=== PATIENT | male | born 1965 | race Caucasian/White ===

== ENCOUNTER 2025-07-09 23:06 | Inpatient (IN) | payer OTHER ==
[~2025-07-09] VITALS: Ht 190.5 cm; Wt 111.4 kg
--- NOTE | 2025-07-09 23:15 | ED.PDOC ---
SOB-HPI HPI Comments 60 year old male presents to the ED via EMS with a chief complaint of shortness of breath. PMHx COPD, HTN, a-fib, pacemaker. Per EMS patient was on 2L O2 at home, sat was 88%, was increased to 6L O2. BP was 77/50. Patient states he has been experiencing fever, sweats, shortness of breath for the past few hours. He is not compliant with Lasix medication, last dose was about 1 week ago. Denies dizziness, nausea, vomiting, diarrhea, dysuria, hematuria, sore throat, congestion. No other symptoms or modifying factors present at this time. Time Seen by MD: 23:05 Reviewed notes: Medications, Allergies Information Source: Patient, Emergency Med Personnel Mode of Arrival: EMS Severity: Moderate Timing: Hours Duration: Since onset Context: At Rest PE Risk Factors: None History of: COPD Prehospital treatment: Oxygen Modifying Factors: Nothing Associated Signs and Symptoms: Fever Past Medical History PAST MEDICAL HISTORY: AFIB, COPD, HTN Surgical History: Pacemaker Family History Family History: Reviewed,noncontributory to illness, No family hx of Cancer, No family hx of DM, No family hx of Heart margarita, No family hx of HTN, No family hx ofKidney margarita, No family hx of Liver margarita, No family hx of Lung margarita, No family hx of Stroke Social History Smoker: Non-Smoker Alcohol: Denies ETOH Use Drugs: Denies Drug Use Lives In: Home Constitutional: reports: fever, sweats; denies: chills, diaphoresis, fatigue, malaise, weakness, others EENTM: denies: blurred vision, double vision, ear bleeding, ear discharge, ear drainage, ear pain, ear ringing, eye pain, eye redness, hearing loss, mouth pain, mouth swelling, nasal discharge, nose bleeding, nose congestion, nose pain, photophobia, tearing, throat pain, throat swelling, voice changes, others Respiratory: reports: shortness of breath; denies: cough, hemoptysis, orthopnea, SOB at rest, SOB with excertion, stridor, wheezing, others Cardiovascular: denies: chest pain, dizzy spells, diaphoresis, Dyspnea on exertion, edema, irregular heart beat, left arm pain, lightheadedness, palpitations, PND, syncope, others Gastrointestinal: denies: abdomen distended, abdominal pain, blood streaked bowels, constipated, diarrhea, dysphagia, difficulty swallowing, hematemesis, melena, nausea, poor appetite, poor fluid intake, rectal bleeding, rectal pain, vomiting, others Genitourinary: denies: burning, dysuria, flank pain, frequency, hematuria, incontinence, penile discharge, penile sore, pain, testicle pain, testicle swelling, urgency, others Neurological: denies: dizziness, fainting, headache, left sided numbness, left sided weakness, numbness, paresthesia, pre-existing deficit, right sided numbness, right sided weakness, seizure, speech problems, tingling, tremors, weakness, others Musculoskeletal: denies: back pain, gout, joint pain, joint swelling, muscle pain, muscle stiffness, neck pain, others Integumetry: denies: bruises, change in color, change in hair/nails, dryness, laceration, lesions, lumps, rash, wounds, others Allergic/Immunocompromised: denies: Difficulty Healing, Frequent Infections, Hives, Itching, others Hematologic/Lymphatic: denies: anemia, blood clots, easy bleeding, easy bruising, swollen glands, others Endocrine: denies: excessive hunger, excessive sweating, excessive thirst, excessive urination, flushing, intolerance to cold, intolerance to heat, unexplained weight gain, unexplained weight loss, others Psychiatric: denies: anxiety, bipolar disorder, depression, hopeless, panic disorder, schizophrenia, sleepless, suicidal, others All Other Systems: Reviewed and Negative Physical Exam General Appearance: Normal HEENT: Normal ENT Inspection, Pharynx Normal, TMs Normal Neck: Full Range of Motion, Non-Tender, Normal, Normal Inspection Respiratory: Chest Non-Tender, Lungs Clear, No Accessory Muscle Use, No Respiratory Distress, Normal Breath Sounds Cardiovascular: No Edema, No JVD, No Murmur, No Gallop, Normal Peripheral Pulses, Regular Rate/Rhythm Breast Exam: Deferred Gastrointestinal: No Organomegaly, Non Tender, No Pulsatile Mass, Normal Bowel Sounds, Soft Genitalia: Deferred Pelvic: Deferred Rectal: Deferred Extremities: No calf tenderness, Normal capillary refill, Normal inspection, Normal range of motion, Non-tender, No pedal edema Musculoskeletal : Apperance: Normal Neurologic: Alert, gis software developer II-XII nml as Tested, No Motor Deficits, Normal Affect, Normal Mood, No Sensory Deficits Cerebellar Function: Normal Reflexes: Normal Skin: Dry, Normal Color, Warm Lymphatic: No Adenopathy Was a procedure done? Was a procedure done?: No Differential Dx Differential Diagnosis: Asthma, CHF, COPD, Pneumonia, Pulmonary Embolism, URI, Other X-Ray, Labs, Meds, VS Vital Signs Date Time Temp Pulse Resp B/P (MAP) Pulse Ox O2 Delivery O2 Flow Rate FiO2 07/10/25 01:06 76/50 07/10/25 00:51 76/43 07/10/25 00:31 72/45 07/10/25 00:00 80 07/09/25 23:50 91 20 92 Nasal Cannula* 6 44 07/09/25 23:18 99.8 80 26 77/50 95 99.8 07/09/25 23:08 80 Lab Test 07/10/25 00:32 07/09/25 23:45 07/09/25 23:17 Range/Units Troponin I High Sensitivity Pending 77 *H </=54 ng/L Influenza Type A Antigen Negative Negative Influenza Type B Antigen Negative Negative SARS-CoV-2 Antigen (Rapid) Negative NEGATIVE White Blood Count 15.1 H 4.4-10.8 10^3/uL Red Blood Count 4.52 4.5-5.90 10^6/uL Hemoglobin 13.0 L 13.5-17.5 g/dL Hematocrit 38.8 L 41.0-53.0 % Mean Corpuscular Volume 86.0 80.0-100.0 fL Mean Corpuscular Hemoglobin 28.7 28.0-32.0 pg Mean Corpuscular Hemoglobin Concent 33.4 32.0-36.0 g/dL Red Cell Distribution Width 14.4 H 11.8-14.3 % Platelet Count 209 140-450 10^3/uL Mean Platelet Volume 8.3 6.9-10.8 fL Neutrophils (%) (Auto) 87.1 H 37.0-80.0 % Lymphocytes (%) (Auto) 3.3 L 10.0-50.0 % Monocytes (%) (Auto) 9.5 0.0-12.0 % Eosinophils (%) (Auto) 0.0 0.0-7.0 % Basophils (%) (Auto) 0.1 0.0-2.0 % Neutrophils # (Auto) 13.1 H 1.6-8.6 10 ^3/uL Lymphocytes # (Auto) 0.5 0.4-5.4 10 ^3/uL Monocytes # (Auto) 1.4 H 0-1.3 10 ^3/uL Eosinophils # (Auto) 0 0-0.8 10 ^3/uL Basophils # (Auto) 0 0-0.2 10 ^3/uL Nucleated Red Blood Cells 0.0 % Prothrombin Time 17.2 H 9.3-11.8 sec Prothrombin Time INR 1.71 H 0.9-1.15 Activated Partial Thromboplast Time 37.7 H 24.5-34.5 SEC Sodium Level 130 L 136-145 mmol/L Potassium Level 4.2 3.5-5.1 mmol/L Chloride Level 95 L 98-107 mmol/L Carbon Dioxide Level 23 20-31 mmol/L Anion Gap 12 5-15 Blood Urea Nitrogen 23 9-23 mg/dL Creatinine 1.25 0.700-1.30 mg/dL Glomerular Filtration Rate Calc 66 >90 mL/min BUN/Creatinine Ratio 18.4 10.0-20.0 Serum Glucose 206 H 74-106 mg/dL Lactic Acid Level 5.3 *H 0.4-2.0 mmol/L Calcium Level 8.1 L 8.7-10.4 mg/dL Magnesium Level 1.8 1.6-2.6 mg/dL Total Bilirubin 3.8 H 0.2-1.0 mg/dL Aspartate Amino Transferase (AST) 119 H 13-40 U/L Alanine Aminotransferase (ALT) 84 H 7-40 U/L Alkaline Phosphatase 281 H 46-116 U/L B-Type Natriuretic Peptide 292.60 0-100 pg/mL Total Protein 6.3 5.7-8.2 g/dL Albumin 3.1 L 3.2-4.8 g/dL Current Medications Medications (Trade) Dose Ordered Sig/Dave Route Start Time Stop Time Status Last Admin Sodium Chloride 1,000 ml @ 1,000 mls/hr Q1H ONCE IVB 07/09/25 23:15 07/10/25 00:14 DC 07/09/25 23:21 Piperacillin Sod/ Tazobactam Sod 100 ml @ 100 mls/hr ONCE ONCE IV 07/09/25 23:15 07/10/25 00:14 DC 07/09/25 23:22 Norepinephrine Bitartrate 250 ml @ 3.75 mls/hr Q24H IV 07/10/25 00:15 07/10/25 00:[address] [address] Ph: [phone] DIAGNOSTIC IMAGING Diagnostic Imaging Report : [id number] Signed PATIENT: YASHIRA GUTIERREZ ACCT: [id number] UNIT: [id number] : 1965 LOC: ER ROOM / BED: / AGE / SEX: 60 / M ADM STATUS: REG ER SERVICE 09 ORDERING PHYSICIAN: MICHAEL HERR MD PROCEDURE(s): CXRP - CHEST PORTABLE REASON: SOB ORDER NUMBER(s): [id number], ACCESSION NUMBER(s): [id number] CHEST RADIOGRAPH Indication: SOB Technique: 1 view Comparison: None FINDINGS: Lines and Tubes: Left implanted cardiac device with leads terminating at the right atrium, right ventricle and coronary sinus. Lungs/Pleura: Diffusely increased interstitial markings. No focal consolidation or evident pleural abnormality. Cardiomediastinum: Unremarkable. Other: No acute osseous abnormality. IMPRESSION: 1. Heart failure pattern without acute findings. ATED BY: GLORIA MENDOZA MD DICTATED DATE/TIME: 07/09/252345 SIGNED BY: GLORIA MENDOZA MD SIGNED DATE/TIME: 07/09/252345 CC: Time of 1ST Reevaluation: 23:35 Reevaluation 1ST: Unchanged Patient Education/Counseling: Diagnosis, Treatment Family Education/Counseling: No Family Present SEPSIS Sepsis Screen Physician Orders Blood Culture (07/09/25 23:10) Chest Portable (07/09/25 23:10) Oxygen (07/09/25 23:10) Process Architect (07/09/25 23:10) Troponin-I Hs (07/10/25 00:10) Troponin-I Hs (07/10/25 02:10) Norepinephrine 8 Mg/250ml Kit (Levophed) (07/10/25 00:15) Vital Signs Date Time Temp Pulse Resp B/P (MAP) Pulse Ox O2 Delivery O2 Flow Rate FiO2 07/10/25 01:06 76/50 8/28/25 00:51 76/43 07/10/25 00:31 72/45 07/10/25 00:00 80 07/09/25 23:50 91 20 92 Nasal Cannula* 6 44 07/09/25 23:18 99.8 80 26 77/50 95 99.8 07/09/25 23:08 80 Laboratory Tests Test 07/09/25 23:17 Lactic Acid Level 5.3 mmol/L (0.4-2.0) *H White Blood Count 15.1 10^3/uL (4.4-10.8) H Medications Medications Dose Ordered Sig/Dave Route Start Time Stop Time Status Last Admin Dose Admin Norepinephrine Bitartrate 250 ml @ 3.75 mls/hr Q24H IV 07/10/25 00:15 07/10/25 00:31 Piperacillin Sod/ Tazobactam Sod 100 ml @ 100 mls/hr ONCE ONCE IV 07/09/25 23:15 07/10/25 00:14 DC 07/09/25 23:22 Sodium Chloride 1,000 ml @ 1,000 mls/hr Q1H ONCE IVB 07/09/25 23:15 07/10/25 00:14 DC 07/09/25 23:21 Departure 1 Departure Time of Disposition: 01:30 Impression: Primary Impression: Respiratory failure with hypoxia Additional Impressions: Pneumonitis CHF (congestive heart failure) Disposition: ADMITTED INPATIENT Admit to: [facility] Condition: Guarded Comments Lab and x-ray results reviewed. Lactic acid elevated. Troponin elevated. Chest x-ray shows CHF and pneumonitis. Patient was given aspirin and IV Rocephin and azithromycin and Lasix. Patient will need to be admitted for stabilization and further workup. Critical Care Note Critical Care Time?: Yes (35 min-critical care time only) Critical care comment: Total critical care time: Approximately 36 minutes Due to a high probability of clinically significant, life threatening deterioration, the patient required my highest level of preparedness to intervene emergently and I personally spent this critical care time directly and personally managing the patient. This critical care time included obtaining a history; examining the patient; pulse oximetry; ordering and review of studies; arranging urgent treatment with development of a management plan; evaluation of patient's response to treatment; frequent reassessment; and, discussions with other providers. This critical care time was performed to assess and manage the high probability of imminent, life-threatening deterioration that could result in multi-organ failure. It was exclusive of separately billable procedures and treating other patients. Stability Stability form required: No Heart Score Heart Score: Heart Score Response (Comments) Value History Moderate Suspicious 1 EKG Repolarization Disturb 1 Age 45-64 1 Risk Factors >3 or Hx ASHD 2 Troponin 1-2 x's Normal limit 1 Total 6 I personally scribed for MICHAEL HERR MD ([email or web address]) on 07/09/25 at 23:15. Electronically submitted by Desiree Ayers ([email or web address]). I personally scribed for MICHAEL HERR MD ([email or web address]) on 07/10/25 at 00:02. Electronically submitted by Desiree Ayers ([email or web address]). MICHAEL HERR MD Jul 09, 2025 23:15
[2025-07-09] MEDS: SODIUM CHLORIDE 0.9% 1,000 ML IVB ONE (23:21)
[2025-07-09] MEDS: PIPERACILLIN-TAZOB 3.375GM 100 ML IV ONE (23:22)
--- NOTE | 2025-07-09 23:29 | ECG ---
[facility] Test Date: 2025-07-09 Test Time: 23:08:00 Pat Name: YASHIRA GUTIERREZ Department: Room: [address] [place] [address] Gender: M Reel Film Inspector: YUE : 1965 Requested By: MICHAEL HERR Order Number: [id number] Reading MD: Arley Jimenez Measurements Intervals [place] Rate: 80 P: 0 AL: 71 QRS: 200 QRSD: 179 T: -15 QT: 467 QTc: 539 Interpretive Statements Ventricular-paced rhythm No further analysis attempted due to paced rhythm Electronically Signed On 07-10-2025 13:12:46 PDT by Arley Jimenez Please click the below link to view image of tracing.
--- NOTE | 2025-07-09 23:49 | DVH ---
CHEST RADIOGRAPH Indication: SOB Technique: 1 view Comparison: None FINDINGS: Lines and Tubes: Left implanted cardiac device with leads terminating at the right atrium, right vent ricle and coronary sinus. Lungs/Pleura: Diffusely increased interstitial markings. No focal consolidation or evident pleural a bnormality. Cardiomediastinum: Unremarkable. Other: No acute osseous abnormality. IMPRESSION: 1. Heart failure pattern without acute findings.
[2025-07-09 23:50] VITALS: PULSE 91; RESP 20; O2SAT 92
[2025-07-09 23:53] LABS: Anion Gap 12 (5-15); BUN/Creatinine Ratio 18.4 (10.0-20.0); Blood Urea Nitrogen 23 mg/dL (9-23); Carbon Dioxide 23 mmol/L (20-31); Magnesium 1.8 mg/dL (1.6-2.6); Potassium 4.2 mmol/L (3.5-5.1); Total Protein 6.3 g/dL (5.7-8.2)
[2025-07-09 23:54] LABS: Alanine Aminotransferase 84 U/L (7-40); Albumin 3.1 g/dL (3.2-4.8); Alkaline Phosphatase 281 U/L (46-116); Bilirubin, Total 3.8 mg/dL (0.2-1.0); Calcium 8.1 mg/dL (8.7-10.4); Chloride 95 mmol/L (98-107); Glucose 206 mg/dL (74-106); Sodium 130 mmol/L (136-145)
[2025-07-09 23:55] LABS: Hematocrit 38.8 % (41.0-53.0); Hemoglobin 13.0 g/dL (13.5-17.5); Mean Corpuscular Hemoglobin 28.7 pg (28.0-32.0); Mean Corpuscular Volume 86.0 fL (80.0-100.0); Nucleated Red Blood Cells % 0.0 %
[2025-07-09 23:59] LABS: Lactic Acid w/Reflex 5.3 mmol/L (0.4-2.0)
[2025-07-10] VITALS (47 sets, daily range): BP systolic 79–121; BP diastolic 28–74; PULSE 80–83; RESP 10–37; TEMP 97.1–102.3; O2SAT 82–97
[2025-07-10 00:08] LABS: INR 1.71 (0.9-1.15); Partial Thromboplastin Time 37.7 SEC (24.5-34.5); Prothrombin Time 17.2 sec (9.3-11.8)
[2025-07-10] MEDS: NOREPINEPHRINE 8 MG/250ML KIT 250 ML IV SCH (00:31)
[2025-07-10 00:55] LABS: COVID19 ANTIGEN SOFIA FIA NEGATIVE (NEGATIVE)
[2025-07-10] MEDS: FUROSEMIDE 20 MG/2 ML VIAL IV ONE (02:16)
[2025-07-10] MEDS: AZITHROMYCIN 500MG/ 250ML 250 ML IV ONE (03:30)
[2025-07-10 07:00] LABS: Urine Protein, UAD 1+ (Negative)
[2025-07-10] MEDS ORDERED: MIRT1TAB38 PO (10:08)
[2025-07-10] MEDS ORDERED: WARF-115 PO (10:08)
[2025-07-10] MEDS ORDERED: CARV25TA55 PO (10:08)
[2025-07-10] MEDS ORDERED: ATOR40TA52 PO (10:08)
--- NOTE | 2025-07-10 10:44 | DVHHP2 ---
History of Present Illness Reason for Visit: Shortness of breath History of Present Illness London Linton is a 60-year-old male with past medical history of AFib, COPD, hypertension, pacemaker, bladder cancer status post chemo radiation, ex-tobacco use, alcohol use, who presents to the ED with shortness of breath. Patient reports that he takes 2 L of oxygen continuously via nasal cannula at home. Patient also reports that he is noncompliant with his medications. , Layla at the bedside and states that the patient had stopped taking his warfarin days ago. He has a [place] patient and was seen at [facility] recently and prior to that [facility]. For pharmacy when they contacted the facility patient was stopped main given warfarin due to hematuria 3 days ago. However patient states that he stopped taking it 15 days ago. Patient denies any recent travels, recent trauma or injury, recent sick contacts, recent ingestion of spoiled food, chest pain, lightheadedness, dizziness, weakness, abdominal pain nausea, vomiting, diarrhea, or urinary symptoms. Cardiovascular: AFIB, HTN Pulmonary: COPD Past Medical History Pacemaker Bladder cancer status post chemo radiation Past Surgical History: Other (Pacemaker) Family History: None Smoke: Quit ALCOHOL: occassional Drugs: None Lives: with Family Domestic Violence: Neg Review of Systems Respiratory: Shortness of breath Allergies: Coded Allergies: NO KNOWN ALLERGIES (Unverified , 07/09/25) Medications Current Medications Medications Dose Ordered Sig/Dave Route Start Time Stop Time Status Last Admin Dose Admin Norepinephrine Bitartrate 250 ml @ 3.75 mls/hr Q24H IV 07/10/25 00:15 07/10/25 00:31 3.75 MLS/HR Exam Vital Signs Vital Signs Date Time Temp Pulse Resp B/P (MAP) Pulse Ox O2 Delivery O2 Flow Rate FiO2 07/10/25 09:30 97.6 80 16 109/75 (86) 97 97.6 07/10/25 07:52 Oxymizer 12 N/A General Appearance: Alert, Oriented X3, Cooperative, mild distress HEENT: Atraumatic, PERRLA, EOMI, Mucous membr. moist/pink Cardiovascular: Normal S1, Normal S2, No murmurs, Other (Paced ) Abdominal: Normal bowel sounds, Soft Extremities: No edema, Normal pulses Skin: No significant lesion Neuro: Normal speech, Strength at 5/5 X4 ext, Normal tone, Sensation intact Psych/Mental Status: Mental status NL, Mood NL Labs/Xrays Labs Test 07/10/25 02:36 07/10/25 02:33 07/10/25 02:31 07/10/25 01:43 Range/Units Urine Color Dark-yellow Yellow Urine Clarity Ex.turbid Clear Urine pH 5.5 5.0-9.0 Urine Specific [place] 1.024 1.001-1.035 Urine Protein 1+ H Negative Urine Ketones Negative Negative Urine Blood 3+ H Negative /uL Urine Nitrite Negative Negative Urine Bilirubin 1+ Negative Urine Urobilinogen 6 Negative mg/dL Urine Leukocyte Esterase Trace Negative /uL Urine RBC 174 0 - 3 /hpf Urine Microscopic WBC 42 H 0-3 /HPF Urine Squamous Epithelial Cells Few <5 /hpf Urine Bacteria Few H None Seen /hpf Urine Hyaline Casts Few 0 - 2 /lpf Urine Mucus Few None Seen Urine Glucose Trace Normal mg/dL Lactic Acid Level 4.3 *H 0.4-2.0 mmol/L Troponin I High Sensitivity 78 *H </=54 ng/L Blood Gas Specimen Type Venous Blood Gas Sample Site Vbg - n/a Blood Gas Patient Temperature 37.0 Arterial Blood Date Drawn [id number] Mukesh Test N/a Venous Blood pH 7.435 H 7.320-7.430 Venous Blood pCO2 at Patient Temp 36.0 L 38.0-54.0 mmHg Venous Blood pO2 at Patient Temp 68.5 H 23.0-48.0 mmHg Venous Blood HCO3 23.6 22.0-29.0 mmol/L Venous Blood Base Excess -0.1 -2.0-3.0 mmol/L Blood Gas Liter Flow 12.00 Blood Gas Modality Oxymizer FiO2 % 82.0 Test 07/09/25 23:45 07/09/25 23:17 Range/Units Influenza Type A Antigen Negative Negative Influenza Type B Antigen Negative Negative SARS-CoV-2 Antigen (Rapid) Negative NEGATIVE White Blood Count 15.1 H 4.4-10.8 10^3/uL Red Blood Count 4.52 4.5-5.90 10^6/uL Hemoglobin 13.0 L 13.5-17.5 g/dL Hematocrit 38.8 L 41.0-53.0 % Mean Corpuscular Volume 86.0 80.0-100.0 fL Mean Corpuscular Hemoglobin 28.7 28.0-32.0 pg Mean Corpuscular Hemoglobin Concent 33.4 32.0-36.0 g/dL Red Cell Distribution Width 14.4 H 11.8-14.3 % Platelet Count 209 140-450 10^3/uL Mean Platelet Volume 8.3 6.9-10.8 fL Neutrophils (%) (Auto) 87.1 H 37.0-80.0 % Lymphocytes (%) (Auto) 3.3 L 10.0-50.0 % Monocytes (%) (Auto) 9.5 0.0-12.0 % Eosinophils (%) (Auto) 0.0 0.0-7.0 % Basophils (%) (Auto) 0.1 0.0-2.0 % Neutrophils # (Auto) 13.1 H 1.6-8.6 10 ^3/uL Lymphocytes # (Auto) 0.5 0.4-5.4 10 ^3/uL Monocytes # (Auto) 1.4 H 0-1.3 10 ^3/uL Eosinophils # (Auto) 0 0-0.8 10 ^3/uL Basophils # (Auto) 0 0-0.2 10 ^3/uL Nucleated Red Blood Cells 0.0 % Prothrombin Time 17.2 H 9.3-11.8 sec Prothrombin Time INR 1.71 H 0.9-1.15 Activated Partial Thromboplast Time 37.7 H 24.5-34.5 SEC Sodium Level 130 L 136-145 mmol/L Potassium Level 4.2 3.5-5.1 mmol/L Chloride Level 95 L 98-107 mmol/L Carbon Dioxide Level 23 20-31 mmol/L Anion Gap 12 5-15 Blood Urea Nitrogen 23 9-23 mg/dL Creatinine 1.25 0.700-1.30 mg/dL Glomerular Filtration Rate Calc 66 >90 mL/min BUN/Creatinine Ratio 18.4 10.0-20.0 Serum Glucose 206 H 74-106 mg/dL Calcium Level 8.1 L 8.7-10.4 mg/dL Magnesium Level 1.8 1.6-2.6 mg/dL Total Bilirubin 3.8 H 0.2-1.0 mg/dL Aspartate Amino Transferase (AST) 119 H 13-40 U/L Alanine Aminotransferase (ALT) 84 H 7-40 U/L Alkaline Phosphatase 281 H 46-116 U/L B-Type Natriuretic Peptide 292.60 0-100 pg/mL Total Protein 6.3 5.7-8.2 g/dL Albumin 3.1 L 3.2-4.8 g/dL CHEST RADIOGRAPH Indication: SOB Technique: 1 view Comparison: None FINDINGS: Lines and Tubes: Left implanted cardiac device with leads terminating at the right atrium, right ventricle and coronary sinus. Lungs/Pleura: Diffusely increased interstitial markings. No focal consolidation or evident pleural abnormality. Cardiomediastinum: Unremarkable. Other: No acute osseous abnormality. IMPRESSION: 1. Heart failure pattern without acute findings. SEPSIS Sepsis Screen Date sepsis recognized/suspect: Jul 10, 2025 Time Sepsis recognized/suspect: 08 Recent Procedure: No On Antibiotic Therapy: No Respiratory Rate >20: No Heart Rate >90: No Temp<36 C (96.8 F) or >38.3 C: No SBP <90 or MAP <65 mmHG: Yes New Acute Mental Status Change: No Is the patient on CPAP, BIPAP,: No Physician Orders * Picc Line Consult (07/10/25 07:05) Vital Signs Date Time Temp Pulse Resp B/P (MAP) Pulse Ox O2 Delivery O2 Flow Rate FiO2 07/10/25 09:30 97.6 80 16 109/75 (86) 97 97.6 07/10/25 09:15 80 14 103/67 (79) 96 07/10/25 09:14 103/67 07/10/25 09:00 109/73 07/10/25 09:00 80 14 109/73 (85) 96 07/10/25 08:45 108/65 07/10/25 08:45 80 15 108/65 (79) 96 07/10/25 08:30 80 14 110/65 (80) 96 07/10/25 08:29 110/65 07/10/25 08:15 111/70 07/10/25 08:15 80 14 111/70 (84) 97 07/10/25 08:00 97.6 80 14 95/53 (67) 97 97.6 07/10/25 07:52 80 16 96 Oxymizer 12 N/A 07/10/25 07:45 80 14 97/55 (69) 97 07/10/25 07:30 80 14 100/57 (71) 97 07/10/25 07:15 80 14 93/66 (75) 97 07/10/25 07:10 93/56 07/10/25 07:00 98.4 80 12 93/56 (68) 96 98.4 07/10/25 06:45 98.4 80 16 102/65 (77) 98 98.4 07/10/25 06:30 98.4 80 13 107/61 (76) 95 98.4 07/10/25 06:15 98.4 80 23 77/46 (56) 93 98.4 07/10/25 06:10 80/43 07/10/25 06:00 98.4 80 24 78/41 (53) 95 98.4 07/10/25 06:00 78/41 07/10/25 05:45 72/42 07/10/25 05:45 98.4 80 19 81/35 (50) 95 98.4 07/10/25 05:30 98.4 80 26 82/54 (63) 92 98.4 07/10/25 05:30 82/54 07/10/25 05:15 98.4 80 20 83/51 (62) 97 98.4 07/10/25 05:00 98.4 80 27 83/50 (61) 97 98.4 07/10/25 04:45 98.4 80 27 91/58 (69) 96 98.4 07/10/25 04:30 84/49 07/10/25 04:30 98.4 80 26 84/49 (61) 97 98.4 07/10/25 04:15 98.4 80 29 80/51 (61) 97 98.4 07/10/25 04:06 85/53 07/10/25 04:00 98.4 80 24 85/53 (64) 97 98.4 07/10/25 03:45 98.4 80 25 83/61 (68) 94 98.4 07/10/25 03:30 98.4 80 28 85/57 (66) 96 98.4 07/10/25 03:15 98.4 80 26 91/61 (71) 96 98.4 07/10/25 03:06 88/61 07/10/25 03:00 98.4 80 21 88/61 (70) 96 98.4 07/10/25 02:45 98.4 80 16 87/60 (69) 96 98.4 07/10/25 02:16 87/54 07/10/25 02:15 98.4 80 30 87/4 (31) 96 98.4 07/10/25 02:06 91/52 Laboratory Tests Test 07/09/25 23:17 07/10/25 02:33 Lactic Acid Level 5.3 mmol/L (0.4-2.0) *H 4.3 mmol/L (0.4-2.0) *H White Blood Count 15.1 10^3/uL (4.4-10.8) H Medications Medications Dose Ordered Sig/Dave Route Start Time Stop Time Status Last Admin Dose Admin Aspirin 162 mg ONCE ONCE PO 07/10/25 01:45 07/10/25 01:46 DC 07/10/25 02:17 162 MG Azithromycin 250 ml @ 125 mls/hr ONCE ONCE IV 07/10/25 03:15 07/10/25 05:14 DC 07/10/25 03:30 125 MLS/HR Furosemide 20 mg ONCE ONCE IV 07/10/25 01:45 07/10/25 01:46 DC 07/10/25 02:16 20 MG Norepinephrine Bitartrate 250 ml @ 3.75 mls/hr Q24H IV 07/10/25 00:15 07/10/25 00:31 3.75 MLS/HR Piperacillin Sod/ Tazobactam Sod 100 ml @ 100 mls/hr ONCE ONCE IV 07/09/25 23:15 07/10/25 00:14 DC 07/09/25 23:22 100 MLS/HR Sodium Chloride 1,000 ml @ 1,000 mls/hr Q1H ONCE IVB 07/09/25 23:15 07/10/25 00:14 DC 07/09/25 23:21 1,000 MLS/HR Assessment/Plan Assessment/Plan Assessment COPD versus CHF exacerbation Hypotensive shock Acute hypoxic respiratory failure requiring supplementary oxygen Medication noncompliance Lactic acidosis likely sepsis Hyperbilirubinemia Transaminitis Leukocytosis likely due to UTI Hyponatremia Elevated troponins Hyperglycemia Medication noncompliance History of AFib History of COPD on home oxygen History of hypertension History of pacemaker History of bladder cancer status post chemo and radiation History of tobacco use Plan Admit to ICU Vasopressors to keep maps greater than 65 Supplementary oxygen Lactic level IV antibiotics-Zosyn Azithromycin given in ED Dijohne Justino nebs Hemoglobin A1c ISS and Accu-Cheks Bilateral lower extremity venous ultrasound D-dimer Diet Home medications reconciled DVT prophylaxis-patient back on warfarin PUD prophylaxis-PPIs Discussed plan of care with patient, patient's , and nurse Consider CTA chest if D-dimer elevated Cardiology consult Counseled patient on cessation of tobacco and alcohol use 87869 Behavior change smoking greater than 10 minutes about use of other options also gave option of nicotine patch [id number] Preventive counseling healthy eating habits, physical activity, and regular checkups Plan discussed with: Patient Date of Service: Jul 10, 2025 Billing Provider: JANNETTE NEW Common Visit Codes: [id number] INP/OBS CARE (HIGH) Secondary Visit Codes: [id number] COUNSELING IND, [id number] CHNG SMOKING >10MIN JANNETTE NEW Jul 10, 2025 10:44
[2025-07-10] MEDS ORDERED: DEXTROSE (50%) 50ML SYRG IV PRN ×2 (10:45→14:30)
[2025-07-10] MEDS ORDERED: ONDANSETRON HCL 4 MG/2 ML VIAL IV PRN (10:45)
[2025-07-10 11:28] LABS: Lactic Acid w/Reflex 3.8 mmol/L (0.4-2.0)
[2025-07-10] MEDS: ACCU-CHEK COMFORT CURVE STRIP VI SCH (12:00)
[2025-07-10] MEDS: InsuLIN REG 1unit/0.01ml Soln (100units/ml) SC SCH (12:00)
[2025-07-10] MEDS: IPRATROPIUM BROM 0.5 MG/2.5ML INH SOL NEB ONE (12:40)
[2025-07-10] MEDS: ALBUTEROL SULF 2.5 MG/0.5ML(0.5%) NEB SOLN NEB ONE (12:40)
[2025-07-10] MEDS: FUROSEMIDE 40 MG/4 ML VIAL IV ONE (12:57)
[2025-07-10] MEDS: PIPERACILLIN-TAZOB 3.375GM 100 ML IV SCH (14:00)
[2025-07-10 14:04] LABS: INR 1.88 (0.9-1.15); Partial Thromboplastin Time 36.3 SEC (24.5-34.5); Prothrombin Time 18.7 sec (9.3-11.8)
--- NOTE | 2025-07-10 15:03 | DVH ---
Bilateral lower extremity venous duplex Clinical History: r/o dvt Comparison: None Technique: Duplex doppler evaluation of the deep venous systems of both lower extremities from the common femora l veins to the popliteal veins including color doppler and spectral/pulsed waveform analysis was perf ormed. Findings: RIGHT SIDE: The common femoral vein demonstrates appropriate compressibility and waveform variability. There is compressibility/patency of the great saphenous vein at the proximal thigh. The femoral vein demonstrates appropriate compressibility and waveform variability. The deep femoral vein demonstrates appropriate compressibility and waveform variability. The popliteal vein demonstrates appropriate compressibility and waveform variability. There is normal compressibility at the tibioperoneal trunk. LEFT SIDE: The common femoral vein demonstrates appropriate compressibility and waveform variability. There is compressibility/patency of the great saphenous vein at the proximal thigh. The femoral vein demonstrates appropriate compressibility and waveform variability. The deep femoral vein demonstrates appropriate compressibility and waveform variability. The popliteal vein demonstrates appropriate compressibility and waveform variability. There is normal compressibility at the tibioperoneal trunk. Impression: 1. No right or left femoropopliteal venous thrombosis.
--- NOTE | 2025-07-10 15:50 | DVHINCON2 ---
Date Seen: Jul 10, 2025 Referring Physician BETTY Randhawa Reason for Consultation CHF exacerbation and noncompliance of warfarin History of Present Illness This is a 60-year-old male patient who presents to emergency room with chief complaint of worsening shortness of breath since last night. Cardiology has been consulted at this time for CHF exacerbation. Initial twelve lead electrocardiogram reveals a ventricular paced rhythm with underlying atrial fibrillation. The patient denies any chest pain or palpitations, but still reports shortness of breath at time of assessment. The patient is currently on 13 L of Oxymizer. Initial troponin level of 77ng/L with flat trend thereafter. Significant past medical history includes congestive heart failure, history myocardial infarction, atrial fibrillation (on warfarin therapy), presence of PATIENT RELATIONS REPRESENTATIVE-D (Biotronik), type 2 diabetes mellitus, COPD with continuous home O2 use, and bladder cancer with metastasis. The patient reports that he was at a follow up visit at [facility] last week and was told that his cancer has spread to his liver and lymph nodes. He also follows up with a telecommunications repairer in the [facility] network named . Past Medical History Past medical history reviewed. No other significant than mentioned above. Past Surgical History PATIENT RELATIONS REPRESENTATIVE-D approximately 10 months ago PTCA without catheter based intervention approximately one year ago Family History Family history reviewed. Social History Previous history of tobacco use Denies any illicit drug use or alcohol use Allergies: Coded Allergies: NO KNOWN ALLERGIES (Unverified , 07/09/25) Home Meds Reported Medications Carvedilol (Carvedilol) 25 Mg Tab, TAB PO 07/10/25 Atorvastatin Calcium (ATORVASTATIN CALCIUM) 40 Mg Tab, 1 TAB PO DAILY 07/10/25 Warfarin Sodium (Warfarin Sodium) 10 Mg Tab, TAB PO 07/10/25 Mirtazapine (Mirtazapine Oral Disintegrating Tablet) 15 Mg Tab, 0.5 TAB PO DAILY 07/10/25 Home Meds Home medications reviewed. Current Medications Current Medications Medications (Trade) Dose Ordered Sig/Dave Route PRN Reason Start Time Stop Time Status Last Admin Norepinephrine Bitartrate 250 ml @ 3.75 mls/hr Q24H IV 07/10/25 00:15 07/10/25 00:31 Warfarin Sodium (Warfarin Per Rx 10MG Protocol) 10 mg DAILY PO 07/11/25 10:00 Patient Own Medication 1 tab DAILY PO 07/11/25 10:00 UNV Patient Own Medication 0.5 tab DAILY PO 07/11/25 10:00 Future Hold Carvedilol (Coreg Tablet) 25 mg Q12HR PO 07/10/25 22:00 Ondansetron HCl (Zofran) 4 mg Q4HP PRN IV NAUSEA / VOMITING 07/10/25 10:45 Acetaminophen (Tylenol Tablet) 650 mg Q6HP PRN PO PAIN SCALE 1-3 OR TEMP>100.4 07/10/25 10:45 Diagnostic Test (Pha) (Accu-Chek Comfort Curve T) 1 strip ACHS 07/10/25 11:30 07/10/25 12:00 Insulin Human Regular (InsuLIN R) ACHS SC 07/10/25 11:30 Dextrose 50 ml UD PRN IV Blood Sugar LESS THAN 60 07/10/25 10:45 Piperacillin Sod/ Tazobactam Sod 100 ml @ 25 mls/hr Q8HR IV 07/10/25 14:00 07/10/25 14:00 Atorvastatin Calcium (Lipitor) 40 mg HS PO 07/10/25 22:00 Furosemide (Lasix Injection) 40 mg DAILY IV 07/11/25 10:00 Ipratropium [place] (Atrovent Medneb) 0.5 mg Q4HWA NEB 07/10/25 18:00 Albuterol (Ventolin Medneb) 2.5 mg Q4HWA NEB 07/10/25 18:00 Diagnostic Test (Pha) (Accu-Chek Comfort Curve T) 1 strip ACHS 07/10/25 17:00 07/10/25 14:32 DC Insulin Human Regular (InsuLIN R) ACHS SC 07/10/25 17:00 07/10/25 14:32 DC Dextrose 50 ml UD PRN IV Blood Sugar LESS THAN 60 07/10/25 14:30 07/10/25 14:32 DC Review of Systems Constitutional: No symptom reported Ears, Nose, & Throat: No symptom reported Eyes: No symptom reported Neurological: No symptoms reported Pulmonary/Respiratory: Shortness of breath Cardiovascular: No symptom reported Gastrointestinal: No symptom reported Genitourinary: No symptom reported Musculoskeletal: No symptom reported Skin: No symptom reported Psychiatric: No symptom reported Endocrine: No symptom reported Hematologic/Lymphatic: No symptom reported Vital Signs Vital Signs Date Time Temp Pulse Resp B/P (MAP) Pulse Ox O2 Delivery O2 Flow Rate FiO2 8/28/25 15:00 24 90 Oxymizer 12 N/A 07/10/25 13:00 107/46 07/10/25 13:00 82 07/10/25 12:44 97.1 97.1 Physical Exam General Appearance: Cooperative. Work of breathing noted when speaking Pulmonary/Respiratory: Diminished throughout Cardiovascular/Chest: Regular rate and rhythm. Peripheral Pulses: 2+ Radial (R). 2+ Radial (L). 2+ Pedal (R). 2+ Pedal (L) Abdominal Exam: Normal bowel sounds. Ankle Exam: Negative ankle edema Lower extremities: Negative lower extremity edema Neuro/Mental Status: A/OX4, coherent. Thoughts/Psych: Normal thought pattern. Appropriate mood and affect. Good judgment and insight. Appearance: No acute distress. Skin Exam: Jaundice. Skin warm and dry. Labs/Diagnostic Data Labs Test 07/10/25 13:37 07/10/25 11:56 07/10/25 10:34 07/10/25 02:36 Range/Units Prothrombin Time 18.7 H 9.3-11.8 sec Prothrombin Time INR 1.88 H 0.9-1.15 Activated Partial Thromboplast Time 36.3 H 24.5-34.5 SEC D-Dimer, Quantitative 8.80 H 0.0-0.49 mg/L FEU Hemoglobin A1c 7.0 H <5.7 % A1C POC Glucose 122 H 70-106 mg/dl Lactic Acid Level 3.8 *H 0.4-2.0 mmol/L Urine Color Dark-yellow Yellow Urine Clarity Ex.turbid Clear Urine pH 5.5 5.0-9.0 Urine Specific [place] 1.024 1.001-1.035 Urine Protein 1+ H Negative Urine Ketones Negative Negative Urine Blood 3+ H Negative /uL Urine Nitrite Negative Negative Urine Bilirubin 1+ Negative Urine Urobilinogen 6 Negative mg/dL Urine Leukocyte Esterase Trace Negative /uL Urine RBC 174 0 - 3 /hpf Urine Microscopic WBC 42 H 0-3 /HPF Urine Squamous Epithelial Cells Few <5 /hpf Urine Bacteria Few H None Seen /hpf Urine Hyaline Casts Few 0 - 2 /lpf Urine Mucus Few None Seen Urine Glucose Trace Normal mg/dL Test 07/10/25 02:31 07/10/25 01:43 07/09/25 23:45 07/09/25 23:17 Range/Units Troponin I High Sensitivity 78 *H </=54 ng/L Blood Gas Specimen Type Venous Blood Gas Sample Site Vbg - n/a Blood Gas Patient Temperature 37.0 Arterial Blood Date Drawn [id number] Mukesh Test N/a Venous Blood pH 7.435 H 7.320-7.430 Venous Blood pCO2 at Patient Temp 36.0 L 38.0-54.0 mmHg Venous Blood pO2 at Patient Temp 68.5 H 23.0-48.0 mmHg Venous Blood HCO3 23.6 22.0-29.0 mmol/L Venous Blood Base Excess -0.1 -2.0-3.0 mmol/L Blood Gas Liter Flow 12.00 Blood Gas Modality Oxymizer FiO2 % 82.0 Influenza Type A Antigen Negative Negative Influenza Type B Antigen Negative Negative SARS-CoV-2 Antigen (Rapid) Negative NEGATIVE White Blood Count 15.1 H 4.4-10.8 10^3/uL Red Blood Count 4.52 4.5-5.90 10^6/uL Hemoglobin 13.0 L 13.5-17.5 g/dL Hematocrit 38.8 L 41.0-53.0 % Mean Corpuscular Volume 86.0 80.0-100.0 fL Mean Corpuscular Hemoglobin 28.7 28.0-32.0 pg Mean Corpuscular Hemoglobin Concent 33.4 32.0-36.0 g/dL Red Cell Distribution Width 14.4 H 11.8-14.3 % Platelet Count 209 140-450 10^3/uL Mean Platelet Volume 8.3 6.9-10.8 fL Neutrophils (%) (Auto) 87.1 H 37.0-80.0 % Lymphocytes (%) (Auto) 3.3 L 10.0-50.0 % Monocytes (%) (Auto) 9.5 0.0-12.0 % Eosinophils (%) (Auto) 0.0 0.0-7.0 % Basophils (%) (Auto) 0.1 0.0-2.0 % Neutrophils # (Auto) 13.1 H 1.6-8.6 10 ^3/uL Lymphocytes # (Auto) 0.5 0.4-5.4 10 ^3/uL Monocytes # (Auto) 1.4 H 0-1.3 10 ^3/uL Eosinophils # (Auto) 0 0-0.8 10 ^3/uL Basophils # (Auto) 0 0-0.2 10 ^3/uL Nucleated Red Blood Cells 0.0 % Sodium Level 130 L 136-145 mmol/L Potassium Level 4.2 3.5-5.1 mmol/L Chloride Level 95 L 98-107 mmol/L Carbon Dioxide Level 23 20-31 mmol/L Anion Gap 12 5-15 Blood Urea Nitrogen 23 9-23 mg/dL Creatinine 1.25 0.700-1.30 mg/dL Glomerular Filtration Rate Calc 66 >90 mL/min BUN/Creatinine Ratio 18.4 10.0-20.0 Serum Glucose 206 H 74-106 mg/dL Calcium Level 8.1 L 8.7-10.4 mg/dL Magnesium Level 1.8 1.6-2.6 mg/dL Total Bilirubin 3.8 H 0.2-1.0 mg/dL Aspartate Amino Transferase (AST) 119 H 13-40 U/L Alanine Aminotransferase (ALT) 84 H 7-40 U/L Alkaline Phosphatase 281 H 46-116 U/L B-Type Natriuretic Peptide 292.60 0-100 pg/mL Total Protein 6.3 5.7-8.2 g/dL Albumin 3.1 L 3.2-4.8 g/dL Assessment Rule out structural heart disease History myocardial infarction Atrial fibrillation (on warfarin therapy) Presence of PATIENT RELATIONS REPRESENTATIVE-D (Biotronik) Septic shock NSTEMI, likely type II secondary to above Acute hypoxic respiratory failure ?PE COPD with continuous home O2 use Transaminitis Type 2 diabetes mellitus Bladder cancer with metastasis Plan/Recommendation We will continue with the following plan/recommendations (Dr. Cummings): We will proceed with obtaining a transthoracic echocardiogram to evaluate cardiac function. At this time, the patient is on vasopressor therapy for hemodynamic support. The patient reports being noncompliant with his warfarin therapy given recent hematuria. D-dimer level extremely elevated, pending CTA to rule out pulmonary embolism. The patient reports that he was at a follow up visit at [facility] last week and was told that his bladder cancer has spread to his liver and lymph nodes. At time of assessment, the patient has made it very clear that he wishes to be a do not resuscitate and [id number]. Patient re questing conservative medical management at this time. Continue with medical management as agreeable with patient. Thank you for allowing us to care for this patient. Please call with any questions or concerns. Critical care time spent: 44 minutes This medical document was created using an electronic medical record system with voice recognition software and computerized dictation system. Although this document has been carefully reviewed, there might still be some phonetic and typographical errors. Occasional wrong-word or ``sound-alike substitutions may have occurred due to the inherent limitations of voice recognition software. These areas are purely typographical due to imperfections of the software programs and do not reflect any compromise in the patient's medical care. Please read the chart carefully and recognize, using context, where these substitutions have occurred. Plan discussed with: Patient NYHA Physical activity limitations: NA Date of Service: Jul 10, 2025 Billing Provider: BUZZ WILDE Cardiology Common Codes: 52361-[id number] INP/OBS CARE (High) Cardiology Consultation Codes: [id number] CONSULT <45MIN BUZZ WILDE Jul 10, 2025 15:49
[2025-07-10] MEDS: WARFARIN SODIUM 2 MG TAB PO ONE (17:00)
[2025-07-10] MEDS ORDERED: InsuLIN REG 1unit/0.01ml Soln (100units/ml) SC SCH (17:00)
[2025-07-10] MEDS ORDERED: ACCU-CHEK COMFORT CURVE STRIP VI SCH (17:00)
[2025-07-10] MEDS: LIDOCAINE 1% (LOCAL ANESTH.) PF 5ml SDV ID ONE (17:52)
--- NOTE | 2025-07-10 18:17 | DVH ---
EXAM: XY CHEST PORTABLE TECHNIQUE: Single frontal chest radiograph CLINICAL HISTORY: PICC LINE PLACEMENT. TO BE ORDERED BY PICC LINE NURSE COMPARISON: XY CHEST PORTABLE on DOS: 07/09/25 Findings/Impression: Frontal chest radiograph demonstrates no acute osseous or superficial soft tissue abnormalities. Left chest wall MACHINE PULLER-D. Right upper extremity PICC terminates near the superior cavoatrial junction. The trachea is midline. Cardiomegaly. No pneumothorax, pleural effusions, or consolidations.
[2025-07-10] MEDS: ALBUTEROL SULF 2.5 MG/0.5ML(0.5%) NEB SOLN NEB SCH (18:32)
[2025-07-10] MEDS: IPRATROPIUM BROM 0.5 MG/2.5ML INH SOL NEB SCH (18:32)
--- NOTE | 2025-07-10 20:04 | DVHINCON2 ---
Date Seen: Jul 10, 2025 Referring Physician BETTY Randhawa Reason for Consultation CHF exacerbation and noncompliance of warfarin History of Present Illness This is a 60-year-old male with a past medical history of congestive heart failure, history myocardial infarction, atrial fibrillation (on warfarin therapy), presence of BLOOD BANK BOOKING CLERK-D (Biotronik), type 2 diabetes mellitus, COPD with continuous home O2 use, and bladder cancer with metastasis who presents to ED with complaints of worsening shortness of breath since last night. Cardiology has been consulted at this time for CHF exacerbation. Initial twelve lead electrocardiogram reveals a ventricular paced rhythm with underlying atrial fibrillation. The patient denies any chest pain or palpitations, but still reports shortness of breath at time of assessment. The patient is currently on 13 L of Oxymizer. Initial troponin level of 77ng/L with flat trend thereafter. The patient reports that he was at a follow up visit at [facility] last week and was told that his cancer has spread to his liver and lymph nodes. He also follows up with a patient financial coordinator in the [facility] network named . Chest x-ray shows heart failure pattern without acute findings. Past Medical History Past medical history reviewed. No other significant than mentioned above. Past Surgical History BLOOD BANK BOOKING CLERK-D approximately 10 months ago PTCA without catheter based intervention approximately one year ago Allergies: Coded Allergies: NO KNOWN ALLERGIES (Unverified , 07/09/25) Home Meds Reported Medications Carvedilol (Carvedilol) 25 Mg Tab, TAB PO 07/10/25 Atorvastatin Calcium (ATORVASTATIN CALCIUM) 40 Mg Tab, 1 TAB PO DAILY 07/10/25 Warfarin Sodium (Warfarin Sodium) 10 Mg Tab, TAB PO 07/10/25 Mirtazapine (Mirtazapine Oral Disintegrating Tablet) 15 Mg Tab, 0.5 TAB PO DAILY 07/10/25 Current Medications Current Medications Medications (Trade) Dose Ordered Sig/Dave Route PRN Reason Start Time Stop Time Status Last Admin Norepinephrine Bitartrate 250 ml @ 3.75 mls/hr Q24H IV 07/10/25 00:15 07/10/25 17:51 Warfarin Sodium (Warfarin Per Rx 10MG Protocol) 10 mg DAILY PO 07/11/25 10:00 07/10/25 17:23 DC Patient Own Medication 1 tab DAILY PO 07/11/25 10:00 UNV Patient Own Medication 0.5 tab DAILY PO 07/11/25 10:00 Future Hold Carvedilol (Coreg Tablet) 25 mg Q12HR PO 07/10/25 22:00 07/10/25 17:16 DC Ondansetron HCl (Zofran) 4 mg Q4HP PRN IV NAUSEA / VOMITING 07/10/25 10:45 Acetaminophen (Tylenol Tablet) 650 mg Q6HP PRN PO PAIN SCALE 1-3 OR TEMP>100.4 07/10/25 10:45 Diagnostic Test (Pha) (Accu-Chek Comfort Curve T) 1 strip ACHS 07/10/25 11:30 07/10/25 16:55 Insulin Human Regular (InsuLIN R) ACHS SC 07/10/25 11:30 Dextrose 50 ml UD PRN IV Blood Sugar LESS THAN 60 07/10/25 10:45 Piperacillin Sod/ Tazobactam Sod 100 ml @ 25 mls/hr Q8HR IV 07/10/25 14:00 07/10/25 14:00 Atorvastatin Calcium (Lipitor) 40 mg HS PO 07/10/25 22:00 Furosemide (Lasix Injection) 40 mg DAILY IV 07/11/25 10:00 Ipratropium [place] (Atrovent Medneb) 0.5 mg Q4HWA NEB 07/10/25 18:00 07/10/25 18:32 Albuterol (Ventolin Medneb) 2.5 mg Q4HWA [facility] 07/10/25 18:00 07/10/25 18:32 Diagnostic Test (Pha) (Accu-Chek Comfort Curve T) 1 strip ACHS 07/10/25 17:00 07/10/25 14:32 DC Insulin Human Regular (InsuLIN R) ACHS [place] 07/10/25 17:00 07/10/25 14:32 DC Dextrose 50 ml UD PRN IV Blood Sugar LESS THAN 60 07/10/25 14:30 07/10/25 14:32 DC Zolpidem Tartrate (Ambien) 10 mg HSPRN PRN PO FOR INSOMNIA 07/10/25 22:00 Enoxaparin Sodium (Lovenox) 110 mg Q12HR SC 07/10/25 22:00 Sodium Chloride (Saline Lock Ns) 10 ml QSHIFT@10,22 IV 07/10/25 22:00 Review of Systems Constitutional: No symptom reported Ears, Nose, & Throat: No symptom reported Eyes: No symptom reported Neurological: No symptoms reported Pulmonary/Respiratory: Shortness of breath Cardiovascular: No symptom reported Gastrointestinal: No symptom reported Genitourinary: No symptom reported Musculoskeletal: No symptom reported Skin: No symptom reported Psychiatric: No symptom reported Endocrine: No symptom reported Hematologic/Lymphatic: No symptom reported Vital Signs Vital Signs Date Time Temp Pulse Resp B/P (MAP) Pulse Ox O2 Delivery O2 Flow Rate FiO2 07/10/25 18:00 80 07/10/25 18:00 37 89 Oxymizer 14 N/A 07/10/25 18:00 79/28 (45) 07/10/25 16:00 99.6 99.6 Physical Exam GENERAL: Alert and oriented x 3. Mild acute distress. EYES: PERRL, EOMI. Anicteric. HENT: Moist mucous membranes. LUNGS: Decreased breath sounds. CARDIOVASCULAR: Regular rate and rhythm. ABDOMEN: Soft, nontender and nondistended. EXTREMITIES: No edema. NEUROLOGIC: No focal neurological deficits. SKIN: Warm, dry. Jaundice. Labs/Diagnostic Data Labs Test 07/10/25 13:37 07/10/25 11:56 07/10/25 10:34 07/10/25 02:36 Range/Units Prothrombin Time 18.7 H 9.3-11.8 sec Prothrombin Time INR 1.88 H 0.9-1.15 Activated Partial Thromboplast Time 36.3 H 24.5-34.5 SEC D-Dimer, Quantitative 8.80 H 0.0-0.49 mg/L FEU Hemoglobin A1c 7.0 H <5.7 % A1C POC Glucose 122 H 70-106 mg/dl Lactic Acid Level 3.8 *H 0.4-2.0 mmol/L Urine Color Dark-yellow Yellow Urine Clarity Ex.turbid Clear Urine pH 5.5 5.0-9.0 Urine Specific [place] 1.024 1.001-1.035 Urine Protein 1+ H Negative Urine Ketones Negative Negative Urine Blood 3+ H Negative /uL Urine Nitrite Negative Negative Urine Bilirubin 1+ Negative Urine Urobilinogen 6 Negative mg/dL Urine Leukocyte Esterase Trace Negative /uL Urine RBC 174 0 - 3 /hpf Urine Microscopic WBC 42 H 0-3 /HPF Urine Squamous Epithelial Cells Few <5 /hpf Urine Bacteria Few H None Seen /hpf Urine Hyaline Casts Few 0 - 2 /lpf Urine Mucus Few None Seen Urine Glucose Trace Normal mg/dL Test 07/10/25 02:31 07/10/25 01:43 07/09/25 23:45 07/09/25 23:17 Range/Units Troponin I High Sensitivity 78 *H </=54 ng/L Blood Gas Specimen Type Venous Blood Gas Sample Site Vbg - n/a Blood Gas Patient Temperature 37.0 Arterial Blood Date Drawn [id number] Mukesh Test N/a Venous Blood pH 7.435 H 7.320-7.430 Venous Blood pCO2 at Patient Temp 36.0 L 38.0-54.0 mmHg Venous Blood pO2 at Patient Temp 68.5 H 23.0-48.0 mmHg Venous Blood HCO3 23.6 22.0-29.0 mmol/L Venous Blood Base Excess -0.1 -2.0-3.0 mmol/L Blood Gas Liter Flow 12.00 Blood Gas Modality Oxymizer FiO2 % 82.0 Influenza Type A Antigen Negative Negative Influenza Type B Antigen Negative Negative SARS-CoV-2 Antigen (Rapid) Negative NEGATIVE White Blood Count 15.1 H 4.4-10.8 10^3/uL Red Blood Count 4.52 4.5-5.90 10^6/uL Hemoglobin 13.0 L 13.5-17.5 g/dL Hematocrit 38.8 L 41.0-53.0 % Mean Corpuscular Volume 86.0 80.0-100.0 fL Mean Corpuscular Hemoglobin 28.7 28.0-32.0 pg Mean Corpuscular Hemoglobin Concent 33.4 32.0-36.0 g/dL Red Cell Distribution Width 14.4 H 11.8-14.3 % Platelet Count 209 140-450 10^3/uL Mean Platelet Volume 8.3 6.9-10.8 fL Neutrophils (%) (Auto) 87.1 H 37.0-80.0 % Lymphocytes (%) (Auto) 3.3 L 10.0-50.0 % Monocytes (%) (Auto) 9.5 0.0-12.0 % Eosinophils (%) (Auto) 0.0 0.0-7.0 % Basophils (%) (Auto) 0.1 0.0-2.0 % Neutrophils # (Auto) 13.1 H 1.6-8.6 10 ^3/uL Lymphocytes # (Auto) 0.5 0.4-5.4 10 ^3/uL Monocytes # (Auto) 1.4 H 0-1.3 10 ^3/uL Eosinophils # (Auto) 0 0-0.8 10 ^3/uL Basophils # (Auto) 0 0-0.2 10 ^3/uL Nucleated Red Blood Cells 0.0 % Sodium Level 130 L 136-145 mmol/L Potassium Level 4.2 3.5-5.1 mmol/L Chloride Level 95 L 98-107 mmol/L Carbon Dioxide Level 23 20-31 mmol/L Anion Gap 12 5-15 Blood Urea Nitrogen 23 9-23 mg/dL Creatinine 1.25 0.700-1.30 mg/dL Glomerular Filtration Rate Calc 66 >90 mL/min BUN/Creatinine Ratio 18.4 10.0-20.0 Serum Glucose 206 H 74-106 mg/dL Calcium Level 8.1 L 8.7-10.4 mg/dL Magnesium Level 1.8 1.6-2.6 mg/dL Total Bilirubin 3.8 H 0.2-1.0 mg/dL Aspartate Amino Transferase (AST) 119 H 13-40 U/L Alanine Aminotransferase (ALT) 84 H 7-40 U/L Alkaline Phosphatase 281 H 46-116 U/L B-Type Natriuretic Peptide 292.60 0-100 pg/mL Total Protein 6.3 5.7-8.2 g/dL Albumin 3.1 L 3.2-4.8 g/dL Assessment Rule out structural heart disease. History myocardial infarction. Atrial fibrillation (on warfarin therapy). Presence of BLOOD BANK BOOKING CLERK-D (Biotronik). Septic shock. NSTEMI, likely type II secondary to above. Acute hypoxic respiratory failure. ?PE. COPD with continuous home O2 use. Transaminitis. Type 2 diabetes mellitus. Bladder cancer with metastasis. Plan/Recommendation I agree with your ongoing assessment and care of plan. Patient has been seen by Deysi Garner NP on my behalf, her and I discussed the plan with the patient. We will proceed with obtaining a transthoracic echocardiogram to evaluate cardiac function. At this time, the patient is on vasopressor therapy for hemodynamic support. The patient reports being noncompliant with his warfarin therapy given recent hematuria. D-dimer level extremely elevated, pending CTA to rule out pulmonary embolism. The patient reports that he was at a follow up visit at [facility] last week and was told that his bladder cancer has spread to his liver and lymph nodes. At time of assessment, the patient has made it very clear that he wishes to be a do not resuscitate and [id number]. Patient requesting conservative medical management at this time. Continue with medical management as agreeable with patient. Additional plan as per the hospital course. Plan discussed with: Patient NYHA Physical activity limitations: NA Date of Service: Jul 10, 2025 Billing Provider: RAYO KEITA MD Cardiology Common Codes: 97282-[id number] INP/OBS CARE (High) Cardiology Consultation Codes: [id number] CONSULT <45MIN RAYO KEITA MD Jul 10, 2025 18:39
[2025-07-10] MEDS: ENOXAPARIN SOD 120 MG/0.8 ML SYRINGE SC SCH (21:22)
[2025-07-10] MEDS: SODIUM CHLOR 0.9% PF (SALINE LOCK) 10ML VIAL/SYR IV SCH (21:23)
[2025-07-10] MEDS: ATORVASTATIN 20 MG TAB PO SCH (21:23)
[2025-07-10] MEDS: ZOLPIDEM TARTRATE 5 MG TAB PO PRN (21:23)
[2025-07-10] MEDS ORDERED: CARVEDILOL 12.5 MG TAB PO SCH (22:00)
[2025-07-11] VITALS (69 sets, daily range): BP systolic 80–116; BP diastolic 46–73; PULSE 67–81; RESP 13–37; TEMP 96.6–100.4; O2SAT 87–100
[2025-07-11 02:20] LABS: Base Excess 2.4 mmol/L (-2.0-3.0)
[2025-07-11 03:48] LABS: Hematocrit 38.6 % (41.0-53.0); Hemoglobin 12.9 g/dL (13.5-17.5); Mean Corpuscular Hemoglobin 28.3 pg (28.0-32.0); Mean Corpuscular Volume 84.7 fL (80.0-100.0); Nucleated Red Blood Cells % 0.2 %
[2025-07-11 03:54] LABS: Anion Gap 10 (5-15); BUN/Creatinine Ratio 28.9 (10.0-20.0); Carbon Dioxide 26 mmol/L (20-31); Potassium 4.2 mmol/L (3.5-5.1); Total Protein 6.0 g/dL (5.7-8.2)
[2025-07-11 03:58] LABS: Alanine Aminotransferase 80 U/L (7-40); Albumin 2.8 g/dL (3.2-4.8); Alkaline Phosphatase 314 U/L (46-116); Bilirubin, Total 4.8 mg/dL (0.2-1.0); Blood Urea Nitrogen 35 mg/dL (9-23); Calcium 7.9 mg/dL (8.7-10.4); Chloride 93 mmol/L (98-107); Glucose 206 mg/dL (74-106); Sodium 129 mmol/L (136-145)
[2025-07-11 04:28] LABS: Triglycerides 122 mg/dL (< 150)
[2025-07-11 04:30] LABS: Cholesterol 76 mg/dL (< 200)
[2025-07-11 04:36] LABS: HDL Cholesterol < 5 mg/dL (40-59)
[2025-07-11] MEDS: ACETAMINOPHEN 325 MG TAB PO PRN (05:15)
[2025-07-11 07:41] LABS: Base Excess -0.7 mmol/L (-2.0-3.0)
[2025-07-11] MEDS: EPINEPHrine HCL 250 ML IV SCH (07:49)
--- NOTE | 2025-07-11 08:27 | DVH ---
CHEST RADIOGRAPH Indication: SOB Technique: Single frontal view of the chest was obtained COMPARISON: XY CHEST PORTABLE on DOS: 07/10/25, XY CHEST PORTABLE on DOS: 07/09/25 FINDINGS: Lines and Tubes: Left chest AICD. Right PICC in satisfactory position. Lungs: Congestion Pleura: No effusion. No pneumothorax. Cardiomediastinal contours: Unremarkable Bones: Unremarkable IMPRESSION: Left chest AICD Right PICC in satisfactory position. Unchanged congestion.
--- NOTE | 2025-07-11 09:37 | ECG ---
[facility] Test Date: 2025-07-11 Test Time: 06:56:53 Pat Name: YASHIRA GUTIERREZ Department: icu Room: [address] [place] [address] A Gender: M [employer] Teacher: courtney : 1965 Requested By: JANNETTE NEW Order Number: [id number] Reading MD: Arley Jimenez Measurements Intervals [place] Rate: 80 P: 0 ME: 176 QRS: 265 QRSD: 191 T: 81 QT: 539 QTc: 622 Interpretive Statements Ventricular-paced rhythm No further analysis attempted due to paced rhythm Electronically Signed On 07-12-2025 16:19:07 PDT by Arley Jimenez Please click the below link to view image of tracing.
[2025-07-11] MEDS: OPTISON 3ml Vial for INJ IV ONE (09:45)
[2025-07-11] MEDS ORDERED: [UNRECOGNIZED DRUG - OTHER] PO SCH (10:00)
[2025-07-11] MEDS ORDERED: VANCOMYCIN PER PHARMACY 0 MG IV SCH (10:00)
[2025-07-11] MEDS ORDERED: MIRTAZAPINE PO SCH (10:00)
[2025-07-11] MEDS ORDERED: PATIENTS OWN MEDICATION (Atorvastatin Calcium 1 TAB) PO SCH (10:00)
[2025-07-11] MEDS: FUROSEMIDE 40 MG/4 ML VIAL IV SCH (10:10)
[2025-07-11] MEDS: PANTOPRAZOLE 40 MG/10 ML VIAL INJ IV SCH (10:55)
[2025-07-11] MEDS: VANCOMYCIN 1GM/250ML KIT 250 ML IV SCH (11:27)
--- NOTE | 2025-07-11 11:47 | DVHPNRES ---
Progress Note Date Seen: Jul 11, 2025 Resident Creating Document: ERNST DARNELL RESIDENT Medical Necessity Reason Pt with a Central, PICC or Fol: Yes Subjective Review of Systems This is a 60-year-old male with past medical history of congestive heart failure, history myocardial infarction, atrial fibrillation (on warfarin therapy), presence of CUSTOMER SOLUTIONS REPRESENTATIVE-D (Biotronik), type 2 diabetes mellitus, COPD with continuous home O2 use, and bladder cancer with metastasis. presented to the ED with a chief complaint of shortness of Breath. Initial twelve lead electrocardiogram reveals a ventricular paced rhythm with underlying atrial fibrillation. The patient denies any chest pain or palpitations, but still reports shortness of breath at time of assessment. The patient is currently on 13 L of Oxymizer. Initial troponin level of 77ng/L with flat trend thereafter, D dimer was elevated event patient history of metastatic bladder cancel and coagulated due to AFib him to high risk of pulmonary embolism. The patient is too unstable, on pressor and not able to go for CT angio to rule out pulmonary embolism. Patient is too unstable for transfer to [place]. Started therapeutic Lovenox 1 milligram/kg b.i.d. for possible pulmonary embolism treatment. Patient was seen on examined on the bedside in ICU. He is alert oriented times 2-3. He is on Oxymizer 16 L with severe respiratory distress, respiratory rate 32 to 33. Yesterday when patient was in ED he was alert and oriented x4 and clearly explained he does not want resuscitation or either intubation, DNR and DNI and family also agreed on that. The patient is not stable for transfer to [place]. Objective vital signs Vital Sign Date Time Temp Pulse Resp B/P (MAP) Pulse Ox O2 Delivery O2 Flow Rate FiO2 07/11/25 10:30 80 15 102/62 (75) 93 07/11/25 10:00 Hi-Flow Heated NC+ 60 100 100 07/11/25 08:00 96.6 96.6 Total Intake and Output 07/10/25 07/10/25 07/11/25 15:00 23:00 07:00 Intake Total 518.75 ml 1624.05 ml 498.75 ml Output Total 500 ml 650 ml 600 ml Balance 18.75 ml 974.05 ml -101.25 ml medications Current Medications Medications Dose Ordered Sig/Dave Route Start Time Stop Time Status Last Admin Dose Admin Norepinephrine Bitartrate 250 ml @ 3.75 mls/hr Q24H IV 07/10/25 00:15 07/11/25 07:50 56.25 MLS/HR Patient Own Medication 1 tab DAILY PO 07/11/25 10:00 UNV Patient Own Medication 0.5 tab DAILY PO 07/11/25 10:00 Hold Ondansetron HCl 4 mg Q4HP PRN IV 07/10/25 10:45 Acetaminophen 650 mg Q6HP PRN PO 07/10/25 10:45 07/11/25 05:15 650 MG Diagnostic Test (Pha) 1 strip ACHS 07/10/25 11:30 07/11/25 10:55 1 STRIP Insulin Human Regular ACHS SC 07/10/25 11:30 07/11/25 10:57 2 UNITS Dextrose 50 ml UD PRN IV 07/10/25 10:45 Piperacillin Sod/ Tazobactam Sod 100 ml @ 25 mls/hr Q8HR IV 07/10/25 14:00 07/11/25 05:15 25 MLS/HR Atorvastatin Calcium 40 mg HS PO 07/10/25 22:00 07/10/25 21:23 40 MG Furosemide 40 mg DAILY IV 07/11/25 10:00 07/11/25 10:10 40 MG Ipratropium [place] 0.5 mg Q4HWA NEB 07/10/25 18:00 07/11/25 09:08 0.5 MG Albuterol 2.5 mg Q4HWA NEB 07/10/25 18:00 07/11/25 09:07 2.5 MG Zolpidem Tartrate 10 mg HSPRN PRN PO 07/10/25 22:00 07/10/25 21:23 10 MG Enoxaparin Sodium 110 mg Q12HR SC 07/10/25 22:00 07/11/25 10:10 110 MG Sodium Chloride 10 ml QSHIFT@10,22 IV 07/10/25 22:00 07/11/25 10:10 10 ML Epinephrine HCl 250 ml @ 7.5 mls/hr Q24H IV 07/11/25 07:15 07/11/25 07:49 7.5 MLS/HR Vancomycin HCl 0 ml @ 0 mls/hr UD IV 07/11/25 10:00 Pantoprazole Sodium 40 mg DAILY IV 07/11/25 10:00 07/11/25 10:55 40 MG Vancomycin HCl 250 ml @ 250 mls/hr Q1H IV 07/11/25 11:15 07/11/25 13:14 07/11/25 11:27 250 MLS/HR Vancomycin HCl 250 ml @ 166.667 mls/hr Q12H IV 07/11/25 23:00 Examination Physical examination: General Appearance: Alert, Oriented X2, Cooperative, severe resp distress HEENT: Atraumatic, PERRLA, EOMI, Mucous membrane moist/pink Respiratory: Bilateral crackles and decreased breath sound Cardiovascular: irregular rate, Normal S1, Normal S2, No murmurs, no chest wall tenderness Abdominal: Normal bowel sounds, Soft, No tenderness, No hepatospenomegaly, No masses Extremities: No clubbing, No cyanosis, No edema, Normal pulses, No tenderness/swelling Skin: No rashes, No breakdown, No significant lesion Neuro: Strength at 5/5 X4 ext, Normal tone, Sensation intact, Cranial nerves 3-12 NL, Reflexes 2+ Psych/Mental Status: Could not be assessed laboratory and microbiology Laboratory Tests 07/11/25 02:58 Test 07/11/25 02:58 Range/Units Serum Glucose 206 H 74-106 mg/dL Microbiology Date/Time Source Procedure Growth Status 07/09/25 23:17 Blood Blood Culture - Preliminary NO GROWTH AFTER 24 HOURS OF INCUBATION. Resulted Labs and/or images reviewed: Labs reviewed by me, Image(s) reviewed by me Problem List/Assessment/Plan Problem List/Assessment/Plan Assessment and plan: NEURO: Acute metabolic encephalopathy likely secondary acute hypoxic respiratory failure On high-flow oxygen 16 L CARDIOVASCULAR: Atrial fibrillation with secondary hypercoagulable state Possible Acute on chronic diastolic heart failure Septic shock likely secondary to multifocal pneumonia History of CAD and status post PTCA x1 Possible NSTEMI type 2 secondary to above - Cxr demonstrated bilateral hazy opacity - pending echo - Lasix 40 mg daily - Patient is on norepinephrine and epinephrine PULMONARY: Septic shock likely secondary to multifocal pneumonia ARDS likely secondary to septic shock - Patiemt is on high-flow nasal cannula 16 L - Pao2/Fio2 < 100 - IV dexamethasone 50 mg q.6 hours - IV vancomycin as per pharmacy and IV Zosyn 3.375 g Q 8 hours - Med neb with albuterol and ipratropium q.4 hours - Preliminary blood culture is unremarkable and pending respiratory and urine bacterial culture GASTROINTESTINAL: Hyperbilirubinemia with transaminitis likely secondary to metastatic bladder cancer GENITOURINARY: Metastatic bladder cancer on chemotherapy Acute complicated cystitis - U/A was UA showed pyuria and bacteriuria - pending urine bacterial culture - IV Zosyn 3.375 g Q 8 hours ENDOCRINE: Type 2 diabetes mellitus, hemoglobin A1c 7 Hyponatremia likely due to volume overload - mild sliding scale of insulin METABOLIC: Moderate protein calorie malnutrition HEME: Chronic normocytic anemia likely anemia due to chronic disease INFECTIOUS DISEASE: Septic shock likely secondary to multifocal pneumonia ARDS likely secondary to septic shock Acute complicated cystitis - Preliminary blood culture is unremarkable and pending respiratory and urine bacterial culture - IV vancomycin as per pharmacy and IV Zosyn 3.375 g Q 8 hours DIET: Consistent carbohydrate diet DVT prophylax: Lovenox GI prophylaxis: Protonix Bowel regimen: Code status: DNR, DNI LINES/DRAINS/ACCESS: IV access: Right upper arm PICC line Drips: Norepinephrine, epinephrine Schaefer catheter: Placed on 07/10/2025 DISPOSITION: ICU Patient's status discussed with and mom Critical care time spent more than 83 minutes, including patient care, chart review, and updating the family. Excluding any procedures. Case discussed with Dr. Ag Plan discussed with: Other (, Mom, RN) My Orders My Orders Orders - ERNST DARNELL Procedure Category Date Status Time Vancomycin Per PHA 07/11/25 In Process Pharmacy 10:00 Blood Culture RACHEL 07/11/25 Uncollected 09:46 Respiratory Culture RACHEL 07/11/25 Uncollected W/ Gs 09:46 Pantoprazole PHA 07/11/25 In Process (Protonix) 10:00 Vancomycin 1gm/250ml PHA 07/11/25 In Process Kit 11:15 Complete Blood Count LAB 07/12/25 Verified 04:00 Creatinine LAB 07/12/25 Verified 04:00 Vancomycin,Trough LAB 07/13/25 Verified 10:00 Vancomycin Per RANDOLPH 07/11/25 In Process Pharmacy Protoc 23:00 Vancomycin PHA 07/11/25 In Process 1.5gm/250ml 23:00 ERNST DARNELL Jul 11, 2025 11:47
[2025-07-11] MEDS ORDERED: OPTISON 3ml Vial for INJ IV ONE (14:45)
[2025-07-11] MEDS: KETOROLAC TROMETH 30 MG/ML 1ML VIAL IV ONE (15:07)
[2025-07-11] MEDS ORDERED: DEXTROSE (50%) 50ML SYRG IV PRN (15:30)
[2025-07-11] MEDS: hydrOXYzine 25 MG TAB or CAP PO ONE (15:43)
[2025-07-11] MEDS ORDERED: InsuLIN REG 1unit/0.01ml Soln (100units/ml) SC SCH (17:00)
[2025-07-11] MEDS ORDERED: ACCU-CHEK COMFORT CURVE STRIP VI SCH (17:00)
[2025-07-11] MEDS ORDERED: hydrOXYzine 25 MG TAB or CAP PO SCH (18:00)
[2025-07-11] MEDS ORDERED: HYDROCORTISONE SOD SUCC 100 MG/2ML INJ VIAL IV SCH (18:00)
--- NOTE | 2025-07-11 18:54 | DVHDS2 ---
Summary Date of Admission Jul 10, 2025 at 10:35 Date and Time of Expiration: Jul 11, 2025 16:33 Reason for Admission: Acute metabolic encephalopathy likely secondary to acute hypoxic respiratory failure. Wounds: No open wound was present Labs/Diagnostic Data: Laboratory Results Test 07/11/25 15:57 07/11/25 07:35 07/11/25 02:58 07/11/25 02:12 POC Glucose 198 mg/dl (70-106) Blood Gas Specimen Type Arterial Blood Gas Sample Site Left radial Blood Gas Patient Temperature 37.0 Arterial Blood Date Drawn [id number] Arterial Blood pH 7.438 (7.350-7.450) Arterial Blood Partial Pressure CO2 34.5 mmHg (35.0-48.0) Arterial Blood Partial Pressure O2 63.3 mmHg (83.0-108.0) Arterial Blood HCO3 22.8 mmol/L (21.0-28.0) Arterial Blood Oxygen Saturation 91.4 % (94.0-98.0) Arterial Blood Base Excess -0.7 mmol/L (-2.0-3.0) Arterial Blood Oxyhemoglobin 90.9 % (94.0-98.0) Arterial Blood Carboxyhemoglobin 0.3 % (0.5-1.5) Arterial Blood Methemoglobin 0.3 % (0.0-1.5) Mukesh Test Yes Blood Gas Total Hemoglobin 14.60 g/dL (13.5-17.5) Blood Gas Liter Flow 60.00 Blood Gas Modality High flow FiO2 % 100.0 White Blood Count 18.0 10^3/uL (4.4-10.8) Red Blood Count 4.56 10^6/uL (4.5-5.90) Hemoglobin 12.9 g/dL (13.5-17.5) Hematocrit 38.6 % (41.0-53.0) Mean Corpuscular Volume 84.7 fL (80.0-100.0) Mean Corpuscular Hemoglobin 28.3 pg (28.0-32.0) Mean Corpuscular Hemoglobin Concent 33.3 g/dL (32.0-36.0) Red Cell Distribution Width 14.5 % (11.8-14.3) Platelet Count 228 10^3/uL (140-450) Mean Platelet Volume 8.7 fL (6.9-10.8) Neutrophils (%) (Auto) 84.8 % (37.0-80.0) Lymphocytes (%) (Auto) 4.2 % (10.0-50.0) Monocytes (%) (Auto) 10.8 % (0.0-12.0) Eosinophils (%) (Auto) 0.1 % (0.0-7.0) Basophils (%) (Auto) 0.1 % (0.0-2.0) Neutrophils # (Auto) 15.3 10 ^3/uL (1.6-8.6) Lymphocytes # (Auto) 0.8 10 ^3/uL (0.4-5.4) Monocytes # (Auto) 2.0 10 ^3/uL (0-1.3) Eosinophils # (Auto) 0 10 ^3/uL (0-0.8) Basophils # (Auto) 0 10 ^3/uL (0-0.2) Nucleated Red Blood Cells 0.2 % Sodium Level 129 mmol/L (136-145) Potassium Level 4.2 mmol/L (3.5-5.1) Chloride Level 93 mmol/L (98-107) Carbon Dioxide Level 26 mmol/L (20-31) Anion Gap 10 (5-15) Blood Urea Nitrogen 35 mg/dL (9-23) Creatinine 1.21 mg/dL (0.700-1.30) Glomerular Filtration Rate Calc 68 mL/min (>90) BUN/Creatinine Ratio 28.9 (10.0-20.0) Serum Glucose 206 mg/dL (74-106) Calcium Level 7.9 mg/dL (8.7-10.4) Total Bilirubin 4.8 mg/dL (0.2-1.0) Aspartate Amino Transferase (AST) 126 U/L (13-40) Alanine Aminotransferase (ALT) 80 U/L (7-40) Alkaline Phosphatase 314 U/L (46-116) Total Protein 6.0 g/dL (5.7-8.2) Albumin 2.8 g/dL (3.2-4.8) Triglycerides Level 122 mg/dL (< 150) Cholesterol Level 76 mg/dL (< 200) LDL Cholesterol 39 mg/dL (< 100) HDL Cholesterol < 5 mg/dL (40-59) Thyroid Stimulating Hormone (TSH) 1.44 uIU/mL (0.55-4.78) Blood Gas Notified Time [id number] Test 07/10/25 13:37 07/10/25 10:34 07/10/25 02:36 07/10/25 02:31 Prothrombin Time 18.7 sec (9.3-11.8) Prothrombin Time INR 1.88 (0.9-1.15) Activated Partial Thromboplast Time 36.3 SEC (24.5-34.5) D-Dimer, Quantitative 8.80 mg/L FEU (0.0-0.49) Hemoglobin A1c 7.0 % A1C (<5.7) Lactic Acid Level 3.8 mmol/L (0.4-2.0) Urine Color Dark-yellow (Yellow) Urine Clarity Ex.turbid (Clear) Urine pH 5.5 (5.0-9.0) Urine Specific [place] 1.024 (1.001-1.035) Urine Protein 1+ (Negative) Urine Ketones Negative (Negative) Urine Blood 3+ /uL (Negative) Urine Nitrite Negative (Negative) Urine Bilirubin 1+ (Negative) Urine Urobilinogen 6 mg/dL (Negative) Urine Leukocyte Esterase Trace /uL (Negative) Urine RBC 174 /hpf (0 - 3) Urine Microscopic WBC 42 /HPF (0-3) Urine Squamous Epithelial Cells Few /hpf (<5) Urine Bacteria Few /hpf (None Seen) Urine Hyaline Casts Few /lpf (0 - 2) Urine Mucus Few (None Seen) Urine Glucose Trace mg/dL (Normal) Troponin I High Sensitivity 78 ng/L (</=54) Test 07/10/25 01:43 07/09/25 23:45 07/09/25 23:17 Venous Blood pH 7.435 (7.320-7.430) Venous Blood pCO2 at Patient Temp 36.0 mmHg (38.0-54.0) Venous Blood pO2 at Patient Temp 68.5 mmHg (23.0-48.0) Venous Blood HCO3 23.6 mmol/L (22.0-29.0) Venous Blood Base Excess -0.1 mmol/L (-2.0-3.0) Influenza Type A Antigen Negative (Negative) Influenza Type B Antigen Negative (Negative) SARS-CoV-2 Antigen (Rapid) Negative (NEGATIVE) Magnesium Level 1.8 mg/dL (1.6-2.6) B-Type Natriuretic Peptide 292.60 pg/mL (0-100) Other Laboratory Tests 07/11/25 02:58 Brief Hx & Hospital Course: This is a 60-year-old male with past medical history of congestive heart failure, history myocardial infarction, atrial fibrillation (on warfarin therapy), presence of IP LITIGATION PARALEGAL-D (Biotronik), type 2 diabetes mellitus, COPD with continuous home O2 use, and bladder cancer with metastasis presented to the ED with a chief complaint of shortness of Breath. Initial twelve lead electrocardiogram reveals a ventricular paced rhythm with underlying atrial fibrillation. The patient denies any chest pain or palpitations, but still reports shortness of breath at time of assessment. The patient is currently on 13 L of Oxymizer. Initial troponin level of 77ng/L with flat trend thereafter, D dimer was elevated given patient history of metastatic bladder cancer and hypercoagulable state due to AFib put him to high risk of pulmonary embolism. The patient is too unstable, on pressor and not able to go for CT angio to rule out pulmonary embolism. Patient is too unstable for transfer to [place]. Started therapeutic Lovenox 1 milligram/kg b.i.d. for possible pulmonary embolism treatment. High-flow nasal cannula 50 L with FiO2 80% and on pressor norepinephrine and epinephrine. chest x-ray was showing bilateral congestion and opacity possibly due to acute on chronic CHF or possible ARDS. EKG showed ventricular paced rhythm, and troponins were mildly elevated and flat possible NSTEMI type 2 due to septic shock and echo was pending. Cardiology was on board . patient was treated for septic shock with pressor, IV vancomycin as per pharmacy, IV Zosyn 3.375 g Q 8 hours, IV hydrocortisone 50 mg q.6 hours. patient was alert and oriented times 2-3 and family was on the bedside. Yesterday when patient was in ED he was alert and oriented x4 and clearly explained he does not want resuscitation or either intubation, DNR and DNI and family also agreed on that. Patient due to sudden cardiopulmonary arrest at 16:33 PM. Cause of : # Acute cardiopulmonary arrest # Ventricular fibrillation # Septic shock secondary to multifocal pneumonia Diagnosis: Acute metabolic encephalopathy likely secondary acute hypoxic respiratory failure Atrial fibrillation with secondary hypercoagulable state Possible Acute on chronic diastolic heart failure Septic shock likely secondary to multifocal pneumonia History of CAD and status post PTCA x 1 Possible NSTEMI type 2 secondary to above ARDS likely secondary to septic shock Hyperbilirubinemia with transaminitis likely secondary to metastatic bladder cancer Acute complicated cystitis Type 2 diabetes mellitus, hemoglobin A1c 7 Hyponatremia likely due to volume overload Moderate protein calorie malnutrition Chronic normocytic anemia likely anemia due to chronic disease Consults/Reason for consult Cardiology was Consulted Operations or Procedures EXAM: XY CHEST PORTABLE TECHNIQUE: Single frontal chest radiograph CLINICAL HISTORY: PICC LINE PLACEMENT. TO BE ORDERED BY PICC LINE NURSE COMPARISON: XY CHEST PORTABLE on DOS: 07/09/25 Findings/Impression: Frontal chest radiograph demonstrates no acute osseous or superficial soft tissue abnormalities. Left chest wall IP LITIGATION PARALEGAL-D. Right upper extremity PICC terminates near the superior cavoatrial junction. The trachea is midline. Cardiomegaly. No pneumothorax, pleural effusions, or consolidations. Bilateral lower extremity venous duplex Clinical History: r/o dvt Comparison: None Technique: Duplex doppler evaluation of the deep venous systems of both lower extremities from the common femoral veins to the popliteal veins including color doppler and spectral/pulsed waveform analysis was performed. Findings: RIGHT SIDE: The common femoral vein demonstrates appropriate compressibility and waveform variability. There is compressibility/patency of the great saphenous vein at the proximal thigh. The femoral vein demonstrates appropriate compressibility and waveform variability. The deep femoral vein demonstrates appropriate compressibility and waveform variability. The popliteal vein demonstrates appropriate compressibility and waveform variability. There is normal compressibility at the tibioperoneal trunk. LEFT SIDE: The common femoral vein demonstrates appropriate compressibility and waveform variability. There is compressibility/patency of the great saphenous vein at the proximal thigh. The femoral vein demonstrates appropriate compressibility and waveform variability. The deep femoral vein demonstrates appropriate compressibility and waveform variability. The popliteal vein demonstrates appropriate compressibility and waveform variability. There is normal compressibility at the tibioperoneal trunk. Impression: 1. No right or left femoropopliteal venous thrombosis. Final Diagnosis/Problems List Acute metabolic encephalopathy likely secondary acute hypoxic respiratory failure Atrial fibrillation with secondary hypercoagulable state Possible Acute on chronic diastolic heart failure Septic shock likely secondary to multifocal pneumonia History of CAD and status post PTCA x 1 Possible NSTEMI type 2 secondary to above ARDS likely secondary to septic shock Hyperbilirubinemia with transaminitis likely secondary to metastatic bladder cancer Acute complicated cystitis Type 2 diabetes mellitus, hemoglobin A1c 7 Hyponatremia likely due to volume overload Moderate protein calorie malnutrition Chronic normocytic anemia likely anemia due to chronic disease Discharge Disposition: at Hospital ERNST DARNELL RESIDENT Jul 11, 2025 18:54
[2025-07-11] MEDS ORDERED: methylPREDNISolone SOD SUCC 40 MG/ML VL IV SCH (22:00)
--- NOTE | 2025-07-11 22:09 | DVHPN2 ---
Progress Note - Dictate Date Seen: Jul 11, 2025 Medical Necessity Reason Pt with a Central, PICC or Fol: Yes Subjective Patient was seen and evaluated in follow up in the ICU this afternoon. Patient is on Oxymizer 16 L with severe respiratory distress, respiratory rate 32 to 33. Patient reports difficulty breathing. Echocardiogram was done at bedside, final results are pending. WBC 18, NA 129, BUN 35, ALK PHOS 314. Chest x-ray shows unchanged congestion. vital signs Vital Sign Date Time Temp Pulse Resp B/P (MAP) Pulse Ox O2 Delivery O2 Flow Rate FiO2 07/11/25 15:45 80 19 115/64 (81) 95 07/11/25 14:00 Hi-Flow Heated NC+ 50 80 80 07/11/25 12:00 98.2 98.2 Total Intake and Output 07/10/25 07/10/25 07/11/25 15:00 23:00 07:00 Intake Total 518.75 ml 1624.05 ml 498.75 ml Output Total 500 ml 650 ml 600 ml Balance 18.75 ml 974.05 ml -101.25 ml medications Current Medications Medications Dose Ordered Sig/Dave Route Start Time Stop Time Status Last Admin Dose Admin Patient Own Medication 1 tab DAILY PO 07/11/25 10:00 UNV objective GENERAL: Alert and oriented x 3. Mild acute distress. EYES: PERRL, EOMI. Anicteric. HENT: Moist mucous membranes. LUNGS: Decreased breath sounds. CARDIOVASCULAR: Regular rate and rhythm. ABDOMEN: Soft, nontender and nondistended. EXTREMITIES: No edema. NEUROLOGIC: No focal neurological deficits. SKIN: Warm, dry. Jaundice. laboratory and microbiology Laboratory Tests 07/11/25 02:58 Test 07/11/25 02:58 Range/Units Serum Glucose 206 H 74-106 mg/dL Problem List Rule out structural heart disease. History myocardial infarction. Atrial fibrillation (on warfarin therapy). Presence of MANAGEMENT COORDINATOR-D (Biotronik). Septic shock. NSTEMI, likely type II secondary to above. Acute hypoxic respiratory failure. ?PE. COPD with continuous home O2 use. Transaminitis. Type 2 diabetes mellitus. Bladder cancer with metastasis. Assessment/Plan Continued all current supportive medical care. IV antibiotics as ordered. Diuretics with Lasix. DVT prophylactics. Vasopressors for hemodynamic support. Additional plan as per the hospital course. Critical care time of 45 minutes provided to include time spent evaluation of patient at bedside, when appropriate patient/family education for diagnosis, treatment plan, review of pertinent medical information and discussion of care with specialty providers and PCP. Plan discussed with: Other RAYO KEITA MD Jul 11, 2025 18:05
[2025-07-11] MEDS ORDERED: VANCOMYCIN 1.5GM/250ML 250 ML IV SCH (23:00)
--- NOTE | 2025-07-12 13:28 | DVHSR ---
APPROVED REPORT EXAM: Two-dimensional and M-mode echocardiogram with Doppler, color Doppler, OPTISON and Bubble Study . Blood Pressure: 85/61 mmHg INDICATION Evaluate cardiac function RISK FACTORS Height: 6'3", Weight: 245 DIMENSIONS LVDd4.3 (3.8-5.7cm)LA (2D)4.5 (1.9-4.0cm)Aortic Root3.8 (2.0-3.7cm) LVDs3.1 (2.5-4.0cm)LA (MM) (1.9-4.0cm)Aortic Cusp Exc1.4 (1.5-2.0cm) EF (%) 54.0 (55-70%)Rt. Atrium6.2 (1.9-4.0cm)Asc. Aorta4.0 cm IVSd1.3 (0.7-1.1cm)RV (D)5.6 (1.8-2.4cm) PWd1.4 (0.7-1.1cm) Mitral Valve MitralMitral Stenosis E wave0.68m/sMV Mean GR.mmHg E/A ratio0.02D MVAcm2 Aortic Valve Aortic ValveAortic Stenosis V11.23m/Melinda Mean GR.8mmHg V21.77m/Melinda Peak GR.13mmHg LVOT Diameter2.3 (1.8-2.4cm)Doppler AVA2.89cm2 Pulmonic Valve V20.87m/s Tricuspid Valve TR Velocity4.42m/s [id number] Other Information Quality : Technically LimitedRhythm : Technically limited study due to body habitus. Conclusion Technically good study. Undetermined rhythm. Biatrial and biventricular enlargement. Aortic root enlargement. Concentric LVH. RV Outflow tract enlargement. Aortic sclerosis with mild calcification of the leaflets but good excursion. Mild mitral annular daniele cification. Left ventricular systolic function is preserved. EF is 60% with normal RV function. Interventricula r and septal doming indicative of pulmonary hypertension with a pressure overload. Contrast ECHO con firms LV EF. There is severe tricuspid insufficiency. Severe pulmonary hypertension noted. There is trace MR. No pericardial effusion masses or vegetations discernible. Pacing lead noted in RV.
== END 2025-07-11 16:33 | DRG 871 ==
LOC: EDBD 23:06 → ER 23:06 → OVERFLOW 07-10 10:35 → ICU WEST 07-10 13:15
PROVIDERS: ADMIT Internal Medicine Pulmonary Disease; ATTEND Internal Medicine Pulmonary Disease
PROC: 02HV33Z Insertion of Infusion Device into Superior Vena Cava, Percutaneous Approach (ICD-10-PCS; principal; 2025-07-10)
PROC: B548ZZA Ultrasonography of Superior Vena Cava, Guidance (ICD-10-PCS; 2025-07-10)
PROC: 5A0935A Assistance with Respiratory Ventilation, Less than 24 Consecutive Hours, High Flow/Velocity Cannula (ICD-10-PCS; 2025-07-11)
DX: A41.9 Sepsis, unspecified organism (principal); G93.41 Metabolic encephalopathy; I21.A1 Myocardial infarction type 2; R65.21 Severe sepsis with septic shock; J80 Acute respiratory distress syndrome; J18.9 Pneumonia, unspecified organism; I50.33 Acute on chronic diastolic (congestive) heart failure; E87.20 Acidosis, unspecified; E87.1 Hypo-osmolality and hyponatremia; E44.0 Moderate protein-calorie malnutrition; D68.69 Other thrombophilia; J44.0 Chronic obstructive pulmonary disease with (acute) lower respiratory infection; N30.00 Acute cystitis without hematuria; E11.65 Type 2 diabetes mellitus with hyperglycemia; Z66 Do not resuscitate; I46.9 Cardiac arrest, cause unspecified; I49.01 Ventricular fibrillation; Z20.822 Contact with and (suspected) exposure to COVID-19; I11.0 Hypertensive heart disease with heart failure; J98.4 Other disorders of lung; E80.6 Other disorders of bilirubin metabolism; I48.91 Unspecified atrial fibrillation; I25.10 Atherosclerotic heart disease of native coronary artery without angina pectoris; D63.8 Anemia in other chronic diseases classified elsewhere; Z98.61 Coronary angioplasty status; Z99.81 Dependence on supplemental oxygen; Z91.148 Patient's other noncompliance with medication regimen for other reason; Z92.3 Personal history of irradiation; Z85.51 Personal history of malignant neoplasm of bladder; Z95.0 Presence of cardiac pacemaker; Z87.891 Personal history of nicotine dependence; Z92.21 Personal history of antineoplastic chemotherapy; Z79.01 Long term (current) use of anticoagulants; Z68.30 Body mass index [BMI] 30.0-30.9, adult; Z79.899 Other long term (current) drug therapy
CPT/HCPCS: 36415; 36569; 36600; 71045; 80053; 80061; 81001; 82805; 82962; 83036; 83605; 83735; 83880; 84443; 84484; 85025; 85379; 85610; 85730; 87040; 87081; 87086; 87426; 87804; 93005; 93306; 93970; 94640; 96365; 96375; 99291; G0378; J0169; J1815; J1885; J2470; J2543; Q9956